=== PATIENT | female | born 1980 | race Caucasian/White ===

== ENCOUNTER 2019-04-24 15:11 | Emergency (ER) | payer BC ==
[~2019-04-24] VITALS: Ht 157.5 cm; Wt 90.4 kg
[~2019-04-24 15:11] MED LIST: AMOXICILLIN500 MG PO; MULTIVITAMIN OR; SILVADENE1 % TOP; SOLU-MEDROL125 MG PO; TESSALON200 MG PO
[2019-04-24] MEDS ORDERED: MULTI VIT PO (15:47)
[2019-04-24 15:55] VITALS: BP 182/113
== END 2019-04-24 16:23 | disposition home or self-care (01) | DRG 605 ==
LOC: ED 15:11
DX: S90.32XA Contusion of left foot, initial encounter (principal); X58.XXXA Exposure to other specified factors, initial encounter